=== PATIENT | female | born 1960 | race African-American/Black ===

== ENCOUNTER 2021-01-26 21:14 | Emergency (ER) | payer OTHER ==
[2021-01-26 21:54] LABS: Bilirubin Negative (Negative); Blood, Urine Trace (Negative); Clarity Clear (Clear); Glucose, Urine (Dipstick) Negative (Negative); Ketone, Urine Negative (Negative); Leukocyte Negative (Negative); Nitrite Negative (Negative); Protein, Urine (Dipstick) Negative (Neg-Trace); Specific Gravity, Urine 1.028 (1.002-1.036); Urobilinogen 0.2 mg/dL (Less than 2)
[2021-01-26 21:55] LABS: RBC/HPF 0-3 HPF (0-3); Squamous Epithelial 0-3 HPF (0-3); WBC/HPF None Seen HPF (0-3)
[2021-01-26] MEDS ORDERED: Ketorolac Tromethamine 60 MG/2 ML VIAL ONE (22:20)
[2021-01-26] MEDS ORDERED: Dicyclomine 10 MG CAP ONE (22:20)
== END 2021-01-26 22:30 | disposition home or self-care (01) ==
LOC: MADERS 21:14
DX: R10.84 Generalized abdominal pain (principal); J45.909 Unspecified asthma, uncomplicated; I10 Essential (primary) hypertension; Z79.82 Long term (current) use of aspirin; Z79.899 Other long term (current) drug therapy
CPT/HCPCS: 74176; 81003; 81015; 96372; J1885

== ENCOUNTER 2021-02-07 21:23 | Emergency (ER) | payer OTHER ==
[2021-02-07] MEDS ORDERED: Dexamethasone 4 MG TAB ONE (21:59)
[2021-02-07] MEDS ORDERED: Gabapentin 100 MG CAP ONE (21:59)
== END 2021-02-07 22:09 | disposition home or self-care (01) ==
LOC: MADERS 21:23
DX: M54.5 Low back pain (principal); G62.9 Polyneuropathy, unspecified; I10 Essential (primary) hypertension; E66.9 Obesity, unspecified; J45.909 Unspecified asthma, uncomplicated; Z79.82 Long term (current) use of aspirin; Z79.899 Other long term (current) drug therapy; Z79.891 Long term (current) use of opiate analgesic
CPT/HCPCS: 99283; J8540